=== PATIENT | male | born 2000 | race African-American/Black ===

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

== ENCOUNTER 2024-10-21 19:06 | Emergency (ER) | payer SELFPAY ==
[2024-10-21] MEDS: Ondansetron 8 MG in Sodium Chloride 0.9% 50 ML IV ONE (19:30)
[2024-10-21] MEDS: LORazepam 2 MG/ML SDV IVPUSH ONE (19:33)
[2024-10-21 19:39] LABS: BASOPHILS PERCENT AUTO 0.4 % (0.0-1.0); EOSINOPHILS PERCENT AUTO 0.3 % (0.0-6.0); HEMATOCRIT 50.8 % (42.0-52.0); HEMOGLOBIN 17.1 gm/dl (14.0-18.0); IMMATURE GRAN ABSOLUTE AUTO 0.13 K/mm3 (0.00-0.05); IMMATURE GRAN PERCENT AUTO 1.8 % (0.0-0.4); LYMPHOCYTES ABSOLUTE AUTO 3.5 K/mm3 (1.0-4.8); LYMPHOCYTES PERCENT AUTO 48.3 % (24.0-44.0); MEAN CORPUSCULAR HEMOGLOBIN 31.3 pg (28.0-32.0); MEAN CORPUSCULAR HGB CONC 33.7 g/dl (32.0-36.0); MEAN PLATELET VOLUME 10.1 fl (9.4-12.4); MONOCYTES ABSOLUTE AUTO 0.5 K/mm3 (0.0-0.8); MONOCYTES PERCENT AUTO 7.5 % (0.0-8.0); NEUTROPHILS PERCENT AUTO 41.7 % (41.0-71.0); PLATELET COUNT,PLT 242 K/mm3 (150-400); RED BLOOD CELL COUNT 5.46 M/mm3 (4.52-5.90)
[2024-10-21 20:06] LABS: A/G RATIO 1.1 (1-2); ALANINE AMINOTRANSFERASE,ALT 34 U/L (16-63); ALBUMIN 4.7 g/dl (3.4-5.0); ALKALINE PHOSPHATASE 93 U/L (46-116); ANION GAP 23.2 (5-15); ASPARTATE AMNIOTRANSFERASE,AST 20 U/L (15-37); BILIRUBIN TOTAL 0.7 mg/dL (0.2-1.0); BLOOD UREA NITROGEN,BUN 11 mg/dL (7-18); BUN/CREATININE RATIO 6.9 (14-18); CALCIUM 9.4 mg/dL (8.5-10.1); CARBON DIOXIDE,CO2 16 mEq/L (21-32); CHLORIDE,CL 101 mEq/L (98-107); CREATININE 1.6 mg/dL (0.7-1.3); EST CRCL DRUG DOSING (CG) 81.15 mL/min; ESTIMATED GFR 62 mL/min (>60); GLUCOSE RANDOM 183 mg/dL (70-99); POTASSIUM,K 4.2 mEq/L (3.5-5.1); SODIUM,NA 136 mEq/L (136-145); TSH 1.317 uIU/mL (0.358-3.74)
[2024-10-21 20:16] LABS: C-REACTIVE PROTEIN < 0.05 mg/dL (<0.30)
[2024-10-21 20:17] LABS: VALPROIC ACID < 3.0 ug/mL (50.0-100.0)
[2024-10-21 20:27] LABS: MAGNESIUM 2.5 mg/dL (1.8-2.4)
[2024-10-21] MEDS: Sodium Chloride 0.9% 1,000 ML IV SCH ×2 (20:58→21:06)
[2024-10-21] MEDS ORDERED: Valproate Sodium 500 MG in Sodium Chloride 0.9% 100 ML IV ONE (21:33)
[2024-10-21] MEDS: Valproate Sodium 1,000 MG in Sodium Chloride 0.9% 100 ML IV ONE (21:54)
== END 2024-10-21 23:06 | disposition home or self-care (01) ==
LOC: JD.ED 19:06
DX: G40.909 Epilepsy, unspecified, not intractable, without status epilepticus (principal); Z79.899 Other long term (current) drug therapy; Z88.8 Allergy status to other drugs, medicaments and biological substances
CPT/HCPCS: 36415; 71045; 80053; 80164; 80307; 83605; 83735; 84443; 85025; 86140; 87428; 93005; 96361; 96365; 96367; 96375; 99285; J2060; J2405; J3490; J7030; 93010; 99284